=== PATIENT | female | born 1995 | race Caucasian/White ===

== ENCOUNTER 2024-09-09 10:17 | Outpatient (CLI) | payer BC, SELFPAY ==
[2024-09-09 10:19] VITALS: BMI 31.0
[2024-09-09 10:23] VITALS: BP 135/79; PULSE 83
[2024-09-09 10:48] VITALS: BP 130/83; PULSE 84
[2024-09-09 12:07] VITALS: BP 128/76; PULSE 87
[2024-09-09 12:22] VITALS: BP 130/77; PULSE 85
[2024-09-09 12:38] VITALS: BP 127/77; PULSE 86
== END 2024-09-09 14:20 | disposition home or self-care (01) ==
LOC: OPOB 10:18 → OBGYN 10:19
PROVIDERS: PCP Family Medicine; Visit Provider Family Medicine
DX: O26.899 Other specified pregnancy related conditions, unspecified trimester (principal); Z3A.00 Weeks of gestation of pregnancy not specified; R10.9 Unspecified abdominal pain
CPT/HCPCS: 59025; 99211; J2795; J3010

== ENCOUNTER 2024-09-09 21:54 | Inpatient (IN) | payer BC, SELFPAY ==
[2024-09-09] VITALS (23 sets, daily range): BP systolic 117–138; BP diastolic 59–88; PULSE 82–120; O2SAT 98–100; BMI 31.0
[2024-09-09 21:52] LABS: Basophils % 0.2 %; Hematocrit 35.5 % (36-47); Lymphocytes # 1.8 10^3/uL (0.8-4.8); Lymphocytes % 10.7 %; Mean Corpuscular HGB Conc 35.5 g/dL (30-55); Mean Corpuscular Hemoglobin 33.1 pg (27-33); Mean Corpuscular Volume 93.2 fl (85-98); Mean Platelet Volume 11.9 fL (7.4-10.4); Monocytes # 0.8 10^3/uL (0.2-0.9); Monocytes % 4.9 %; Neutrophils % 83.8 %; Nucleated Red Blood Cells % 0 %; Platelet Count 233 10^3/cmm (157-399); Red Blood Count 3.81 10^6/uL (3.85-5.65); Red Cell Distribution Width 12.4 % (12.1-15.1); White Blood Count 16.95 10^3/uL (3.29-11.43)
[2024-09-09] MEDS: sodium chloride 0.9% 1,000 ML 999 ML IV (22:18)
--- NOTE | 2024-09-09 23:32 | ANES.PROC ---
Anesthesia Procedures Procedure/Date: 09/09/24 Epidural: Time Out Performed: Yes Consents Signed: Procedure Consent Consent: requested by attending/covering physician, from patient, risks and benefits reviewed and patient agrees to proceed Lumbar Level: L3-L4 Epidural position: sitting Epidural procedure: sterile prep of area, 1% lidocaine to numb the area, 18 g needle, neg for paresthesia, test dose given, 1.5% xylocaine 1:200k epi (5cc), 0.2% Ropivacaine bolus ml, placed PCEA, no systemic response, sterile dressing applied, L.U.D. no apparent complications and 0.2% Ropiavacaine @ mls/hr (13cc/hour) Additional Comments: Pt tolerated well
--- NOTE | 2024-09-09 23:34 | P.ANESASSM_ITS ---
Pre-Anesthetic Assessment Height/Weight: Height 1.78 m Weight 98.203 kg Pulse BP Pulse Ox 101 H 123/66 98 09/09/24 23:31 09/09/24 23:30 09/09/24 23:31 Preop Diagnosis: Labor pain JADYN Was Beta Viri taken within 24 hours: N/A Was Clonidine taken within 24 hours: N/A Social No alcohol and No tobacco Exam alert, oriented x 3, clear to auscultation bilaterally and regular rate & rhythm Airway Submandibular: within normal limits Cervical ROM: within normal limits Mallampati: Class II Dentition: full History/ROS No significant history except as noted and No significant complaints Pulmonary None reported CV/HEM None reported None reported Hepatic None reported GI None reported Metabolic None reported Musc/skel None reported Neuropsych None reported Anesthetic Plan ASA status: 2 Anesthesia: Anesthesia Evaluation and Regional (specify below) (JADYN) Risk of > 500 ml blood loss (7ml/kg in children): No Medications/Allergies Home Medications Medication Instructions Recorded Confirmed Last Taken Type 09/09/24 09/08/24 History Allergies Allergy/AdvReac Type Severity Reaction Status Date / Time No Known Allergies Allergy Verified 09/09/24 10:35 Current Medications Generic Name Dose Route Start Last Admin Trade Name Freq PRN Reason Stop Dose Admin Sodium Chloride 1,000 mls @ 999 mls/hr 09/09/24 21:35 09/09/24 22:18 Sodium Chloride 0.9% IV 999 mls/hr .Q1H1M PRN Administration See label comments PFSH Anesthesia Female Reproductive History : 2 Data Anesthesia 09/09/24 21:15 Short CBC 09/09/24 Range/Units 21:15 WBC 16.95 H (3.29-11.43) 10^3/uL Hgb 12.60 (11.27-16.99) g/dL Hct 35.5 L (36-47) % MCV 93.2 (85-98) fl Plt Count 233 (157-399) 10^3/cmm Neut % (Auto) 83.8 % Neut # (Auto) 14.20 H (1.8-7.7) 10^3/uL Blood Bank 09/09/24 21:15 Blood Type A Positive Rho(D) Type Rh positive Antibody Screen Negative Cardiac Studies: 2 No Data to Display
[2024-09-10] VITALS (41 sets, daily range): BP systolic 99–131; BP diastolic 51–80; PULSE 70–127; RESP 18; TEMP 35.8–36.8; O2SAT 97–98
--- NOTE | 2024-09-10 02:47 | PM.OPHPUD ---
Labor & Delivery H&P Update Date of Procedure: September 10, 2024 Date H&P Performed: 09/04/24 Changes to previous documentation: The patient is an active labor with cervical change. Admission Diagnosis: 29-year-old 2 para 1-0-0-1 at 40 weeks estimated gestational age Preop diagnosis: Labor pain Other information: The patient has had an unremarkable . She has had consistent care. She had been having contractions and having it consistently more frequent and more painful over the last couple of days. Her labs were unremarkable. Her blood type is a positive. Her antibody screen was negative. Her glucose screen was negative. She is GBS negative. She is rubella immune. The remainder of her infectious disease profile is within normal limits. Related Problem List Diagnoses (1) 40 weeks gestation of : A&P Assessment and plan (1) 40 weeks gestation of : I anticipate routine labor and delivery. Status: Acute
--- NOTE | 2024-09-10 07:48 | PM.DELIVERY ---
Delivery Note: Date of delivery: September 10, 2024 Pre-delivery diagnoses: 29-year-old 2 para 1-0-0-1 at 40 weeks estimated gestational age in active labor Post-delivery diagnoses: Status post spontaneous vaginal delivery Procedure: Spontaneous vaginal delivery Delivering Physician: Cj Wild Estimated blood loss (mL): 100 Pre-Delivery Course: The patient presented to the hospital active labor. An epidural was placed. An amniotomy was performed. She progressed to complete without difficulty. Delivery: DELIVERY: The patient progressed to complete without difficulty. She delivered a female with a weight of 6 pounds 7 ounces with Apgars of 8, 9. The baby was delivered from the CAMELIA position. The baby's mouth and nose were suctioned at the site of the perineum. The baby was then completely delivered and placed on the mother's abdomen. The cord was then clamped and cut. There was no nuchal cord. There was no meconium. The placenta and 3 vessel cord were delivered intact shortly thereafter. The perineum and vaginal vault were carefully examined. No lacerations were noted. Both the mother and the baby were in stable condition. Post-Delivery Status: Good A&P Assessment and plan (1) Spontaneous vaginal delivery: I anticipate routine care. Coding Level of Care Code Acute Code for Chg Fwd Diagnoses Spontaneous vaginal delivery O80
[2024-09-10] MEDS: PRENATAL VIT NO.130/IRON/FOLIC 1 EACH TABLET PO (09:16)
[2024-09-10] MEDS: docusate sodium 100 mg Capsule PO (09:16)
[2024-09-10] MEDS: ibuprofen 800 mg tablet PO (12:01)
[2024-09-10 17:00] LABS: Hematocrit 29.3 % (36-47); Mean Corpuscular HGB Conc 34.8 g/dL (30-55); Mean Corpuscular Volume 94.8 fl (85-98); Mean Platelet Volume 11.8 fL (7.4-10.4); Platelet Count 180 10^3/cmm (157-399); Red Blood Count 3.09 10^6/uL (3.85-5.65); Red Cell Distribution Width 12.8 % (12.1-15.1); White Blood Count 10.71 10^3/uL (3.29-11.43)
[2024-09-11 04:00] VITALS: BP 122/74; PULSE 71; RESP 18; TEMP 36.7
--- NOTE | 2024-09-11 06:32 | P.DS_ITS ---
Discharge Providers JEWELLERY DESIGNER Date of Admission: 09/09/24 21:54 Date of Discharge: 09/11/24 Attending Provider at Admission: Cj Wild MD Attending Provider at Discharge: Cj Wild MD Primary Care Provider: Cj Wild MD Diagnoses at Discharge Discharge Diagnosis (1) Spontaneous vaginal delivery: Status: Acute Reason for Visit Reason for Visit: CTX Hospital Course Hospital Course The patient presented to the hospital in active labor. An epidural was placed. An amniotomy is performed. Patient progressed complete without difficulty. She had an unremarkable delivery of a healthy female infant. Her course was also unremarkable. She breast-fed well. Her bleeding was within normal limits. Her pain was well-controlled. Information Peripartum Data: Delivery Method: Vaginal Physical Exam Narrative: The patient is alert. She appears comfortable. Her heart has a regular rate and rhythm with no murmurs appreciated. Lungs are clear to auscultation bilaterally. Her fundus is firm and below the umbilicus. Urinary Catheter Management: Shields: Cath Placed During This Visit: yes, but has since been removed by the nurse Reason for Continuing Indwelling Catheter: Decision to DC Catheter Urinary Catheter Date of Insertion: 09/10/24 Urinary Catheter Time of Insertion: 00:13 Date Urinary Catheter Removed: 09/10/24 Time Urinary Catheter Discontinued: 03:15 Discharge Data Studies Completed and Pending Laboratory Results WBC 10.71 10^3/uL (3.29-11.43) 09/10/24 16:39 RBC 3.09 10^6/uL (3.85-5.65) L 09/10/24 16:39 Hgb 10.20 g/dL (11.27-16.99) L 09/10/24 16:39 Hct 29.3 % (36-47) L 09/10/24 16:39 MCV 94.8 fl (85-98) 09/10/24 16:39 MCH 33.0 pg (27-33) 09/10/24 16:39 MCHC 34.8 g/dL (30-55) 09/10/24 16:39 RDW 12.8 % (12.1-15.1) 09/10/24 16:39 Plt Count 180 10^3/cmm (157-399) 09/10/24 16:39 MPV 11.8 fL (7.4-10.4) H 09/10/24 16:39 Neut % (Auto) 83.8 % 09/09/24 21:15 Lymph % (Auto) 10.7 % 09/09/24 21:15 Ector % (Auto) 4.9 % 09/09/24 21:15 Eos % (Auto) 0.0 % 09/09/24 21:15 Baso % (Auto) 0.2 % 09/09/24 21:15 Neut # (Auto) 14.20 10^3/uL (1.8-7.7) H 09/09/24 21:15 Lymph # (Auto) 1.8 10^3/uL (0.8-4.8) 09/09/24 21:15 Ector # (Auto) 0.8 10^3/uL (0.2-0.9) 09/09/24 21:15 Eos # (Auto) 0.0 10^3/uL (0.0-0.8) 09/09/24 21:15 Baso # (Auto) 0.0 10^3/uL (0.0-0.1) 09/09/24 21:15 Nucleated RBC % (auto) 0 % 09/09/24 21:15 Nucleated RBCs # 0.0 /100WBC 09/09/24 21:15 Blood Type A Positive 09/09/24 21:15 Rho(D) Type Rh positive 09/09/24 21:15 Antibody Screen Negative 09/09/24 21:15 Vitals Last Vital Signs Temp 98.0 F 09/11/24 04:00 Pulse 71 09/11/24 04:00 Resp 18 09/11/24 04:00 BP 122/74 09/11/24 04:00 Pulse Ox 98 09/10/24 22:00 O2 Del Method Room Air 09/10/24 22:00 Results Labs OB ([facility]): Blood Type A Positive 09/09/24 Antibody Screen Negative 09/09/24 Hct 29.3 % (36-47) L 09/10/24 Hgb 10.20 g/dL (11.27-16.99) L 09/10/24 Rho(D) Type Rh positive 09/09/24 Plt Count 180 10^3/cmm (157-399) 09/10/24 Discharge Plan Discharge Patient Disposition: Home Condition: Stable Prescriptions: New ibuprofen 800 mg Tablet 800 mg PO TID Qty: 45 0RF Continued 1 tab PO DAILY Discharge Orders: Discharge Order (Routine); Ordered 09/11/24 Ordered By: Cj Wild Referrals: Cj Wild MD [Primary Care Provider] - 6 Weeks Discharge Diet: Usual diet Discharge Activity: Limit activity as instructed Patient Instructions: Opioid Safety Discharge Attestations JEWELLERY DESIGNER Time Spent in Discharge Care*: less than 30 min Coding Level of Care Code Acute Code for Chg Fwd Diagnoses Spontaneous vaginal delivery O80
--- NOTE | 2024-09-11 08:01 | ANE.PACU2 ---
Inpatient post-anesthesia follow up: Airway intact: Yes Vital signs: Temperature 98.0 F Pulse Rate 71 Respiratory Rate 18 Blood Pressure 122/74 Pulse Oximetry 98 Oxygen Delivery Me thod Room Air Oxygen Flow Rate Fraction of Inspir ed Oxygen Hydration adequate: Yes Nausea and vomiting: No Pain level: 2 Mental status: Baseline Epidural Start/End: Epidural Start Date: 09/09/24 Epidural Start Time: 23:11 Epidural End Date: 09/10/24 Epidural End Time: 06:00
[2024-09-11 09:51] VITALS: BP 130/80; PULSE 84; RESP 16; TEMP 36.8; O2SAT 99
== END 2024-09-11 08:52 | disposition home or self-care (01) | DRG 807 ==
LOC: OPOB 21:55 → OBGYN 21:55
PROVIDERS: Admitting Provider Family Medicine; PCP Family Medicine; Visit Provider Family Medicine
DX: O80 Encounter for full-term uncomplicated delivery (principal); Z37.0 Single live birth; Z3A.40 40 weeks gestation of pregnancy
CPT/HCPCS: 36415; 51702; 59025; 59409; 85025; 85027; 86850; 86900; 99211; J7030